=== PATIENT | male | born 1975 | race Caucasian/White ===

== ENCOUNTER 2019-03-14 09:09 | Day surgery (SDC) | payer OTHER ==
[2019-03-14] MEDS ORDERED: CEFAZOLIN/SWI 1gm 1 GM/10 ML SYR ONE (09:33)
[2019-03-14] MEDS ORDERED: Ringers Lactate 1,000 ML IV ONE ×2 (09:33→12:06)
[2019-03-14 09:51] LABS: Absolute Lymphocytes (CBC) 1.6 K/uL (0.7-4.9); Basophils % 0.6 % (0-1.3); Hematocrit 39.5 % (39.6-49.0); Lymphocytes % 28.8 % (15.3-44.8); RBC Red Blood Cell Count 4.45 M/uL (4.33-5.43)
[2019-03-14] MEDS ORDERED: FENTANYL CITR 100 MCG/2 ML ONE (10:55)
[2019-03-14] MEDS ORDERED: MIDAZOLAM HCL 2 MG/2 ML INJ ONE (10:56)
[2019-03-14] MEDS ORDERED: propofoL 200 MG/20 ML VIAL IV ONE (10:56)
[2019-03-14] MEDS ORDERED: LIDOCAINE 2% MPF 5 ML VIAL ONE (10:56)
[2019-03-14] MEDS ORDERED: ONDANSETRON 4 MG/2 ML VIAL ONE ×4 (10:57→15:21)
[2019-03-14] MEDS ORDERED: KETOROLAC 30 MG/ML INJ ONE (11:39)
[2019-03-14] MEDS ORDERED: MORPHINE 10 MG/ML VIAL ONE (11:39)
[2019-03-14] MEDS ORDERED: GLYCOPYRROLATE 0.2 MG/ML SYR ONE (11:49)
--- NOTE | 2019-03-14 12:35 | P.BOP ---
Preoperative diagnosis: fibula fracture with syndesmosis disruption Postoperative diagnosis: same Primary procedure: ORIF fibula with syndesmosis fixation Estimated blood loss: 10 ccs Anesthesia: General Complications: None Transferred to: Recovery Room Condition: Good
[2019-03-14] MEDS: HYDROMORPHONE HCL 1 MG/ML INJ ONE ×4 (12:45→13:04)
--- NOTE | 2019-03-14 12:45 | RAD REPORT ---
EXAM DESCRIPTION: RAD - Ankle Left 3 View -03/14/2019 12:33 pm CLINICAL HISTORY: Left ankle surgery FINDINGS: 1 fluoroscopic spot image is submitted. Fluoroscopy time 0.5 minutes Lateral view of the left ankle demonstrates 2 screws overlying the tibia and fibula. Surgery performed by Dr. Craig
[2019-03-14] MEDS ORDERED: CODEINE 30MG/APAP 300MG TAB ONE (13:55)
[2019-03-14 15:28] VITALS: BP 124/74; TEMP 97; O2SAT 99
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
== END 2019-03-14 16:20 | disposition home or self-care (01) ==
LOC: OR 09:09
PROVIDERS: ATTEND Orthopaedic Surgery
PROC: 0SSG04Z Reposition Left Ankle Joint with Internal Fixation Device, Open Approach (ICD-10-PCS; 2019-03-14)
PROC: 0QSK04Z Reposition Left Fibula with Internal Fixation Device, Open Approach (ICD-10-PCS; principal; 2019-03-14 11:30)
DX: S82.832A Other fracture of upper and lower end of left fibula, initial encounter for closed fracture (principal); S93.432A Sprain of tibiofibular ligament of left ankle, initial encounter
CPT/HCPCS: 85025; 80048; 36415; 73610; 27792; 27829; J2704; J2250; J3010; J1170 ×2; J0690; J7120 ×2; J2405 ×4